=== PATIENT | female | born 1980 | race Caucasian/White ===

== ENCOUNTER 2016-10-12 18:55 | Inpatient (IN) | payer OTHER ==
[2016-10-13 01:16] LABS: HEMOGLOBIN 13.9 gm/dl (12.3-15.3); RED BLOOD COUNT 4.22 M/UL (4.00-5.10); WHITE BLOOD COUNT 18.1 K/UL (4.5-11.0)
[2016-10-14 03:07] LABS: HEMOGLOBIN 11.1 gm/dl (12.3-15.3)
[2016-10-15] MEDS ORDERED: COLACE 100MG C100 MG PO (12:16)
== END 2016-10-15 12:45 | disposition home or self-care (01) | DRG 775 ==
LOC: GENOP 18:55 → ZEROF 10-13 01:00 → OB 10-13 01:00
PROVIDERS: Obstetrics & Gynecology; ADMIT Obstetrics & Gynecology
PROC: 10E0XZZ Delivery of Products of Conception, External Approach (ICD-10-PCS; principal; 2016-10-13)
PROC: 0KQM0ZZ Repair Perineum Muscle, Open Approach (ICD-10-PCS; 2016-10-13)
PROC: 3E0234Z Introduction of Serum, Toxoid and Vaccine into Muscle, Percutaneous Approach (ICD-10-PCS; 2016-10-13)
DX: O36.0930 Maternal care for other rhesus isoimmunization, third trimester, not applicable or unspecified (principal); O75.89 Other specified complications of labor and delivery; K59.00 Constipation, unspecified; K21.9 Gastro-esophageal reflux disease without esophagitis; O99.824 Streptococcus B carrier state complicating childbirth; O99.214 Obesity complicating childbirth; O70.1 Second degree perineal laceration during delivery; Z3A.39 39 weeks gestation of pregnancy; Z37.0 Single live birth; Z82.49 Family history of ischemic heart disease and other diseases of the circulatory system; Z82.5 Family history of asthma and other chronic lower respiratory diseases; Z23 Encounter for immunization
CPT/HCPCS: 36415; 51702; 81001; 82800; 83518; 85014; 85018; 85025; 85461; 86900; 86901; 90715; 96360; 96361; 96374; J2300; J2405; J2590; J2795; J3010; J3430; J7120